=== PATIENT | female | born 1960 | race Caucasian/White ===

== ENCOUNTER 2017-01-28 14:01 | Day surgery (SDC) | payer OTHER ==
[~2017-01-28] VITALS: Ht 157.5 cm; Wt 75.7 kg
[~2017-01-28 14:01] MED LIST: HYDR-906 PO; IBUP400T22 PO; METO10TA92 PO; PANT40TA3 PO
[2017-01-28 14:43] VITALS: Ht 157.5 cm; Wt 75.7 kg
[2017-01-28 15:05] VITALS: BP 123/73; PULSE 62; RESP 18
[2017-01-28] MEDS ORDERED: MEPERIDINE 50 MG INJ ONE (15:30)
[2017-01-28] MEDS ORDERED: MIDAZOLAM 1 MG/ML 2 ML INJ ONE ×2 (15:30)
[2017-01-28] MEDS ORDERED: FENTAnyl 50 MCG/ML VIAL ONE (15:32)
--- NOTE | 2017-01-28 15:39 | OPPN ---
Date/Time of Note Date/Time of Note DATE: 01/28/17 TIME: 15:35 Operative Report Preoperative Diagnosis F/U COLON CA LLQ PAIN Postoperative Diagnosis S/P LEFT COLECTOMY ANASTAMOSIS AT 15 CMS MELANOSIS COLI Operation/Procedure Performed COLONOSCOPY DIAGNOSTIC Provider: NYLA JAIME MD Anesthesia Type: moderate sedation (VERSED 4MG/DEMORAL 50MG ) Estimated blood loss: none Transfusion Required: no Specimen: none Grafts/Implants: none Complications: no NYLA JAIME MD Jan 28, 2017 3:39 pm
[2017-01-28 16:05] VITALS: BP 108/67; PULSE 62; RESP 14
--- NOTE | 2017-01-28 23:20 | GILP ---
DATE OF PROCEDURE: 01/28/2017 PREOPERATIVE DIAGNOSIS: This patient had colon CA resected here in 2016, and since then she had chemotherapy and further oncological therapy. Complaints of left lower quadrant pain thus she underwent colonoscopy. 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 Sutures metallic and silk sutures noted. Deformity at the workup colocolostomy noted. The rest of the colon and rectum are unremarkable. PROCEDURE PERFORMED: Colonoscopy. SURGEON: Raven Garcia MD. DESCRIPTION OF PROCEDURE: The patient was put in the left lateral decubitus. After obtaining informed consent she was given 4 mg of IV Versed and 50 mcg mg of Demerol. Rectal exam was done which is normal. I advanced a Olympus video colonoscope all the way to cecum. Appendiceal opening and ileocecal valve were identified. Pictures of the cecum taken and multiple pictures throughout the colon taken. Melanosis coli noted throughout the colon and no polyps noted. The cecum and ascending colon normal other than melanosis coli. Transverse colon and descending colon normal. Sigmoid colon shortened due to previous left colectomy, and at 15 cm there is an anastomotic site. It is irregular scarring with silk suture and metallic sutures. Photography of this area done. There was no evidence of any recurrent tumor in this area. Rectum also examined by retroflexion and antegrade exam normal. Upon removal of the scope the patient had no complication other than the surgical anastomotic site findings and melanosis coli. This study is negative for any new tumor or polyps. Recommend a close follow up. Oncologist may consider PET-CT. She will see me as an outpatient and may consider rectal ultrasound because of her left lower quadrant and rectal pain. Meanwhile the patient will be followed by all the consultants and Oncologist, I will see the patient as an outpatient in 2 weeks to go over the findings again. A repeat colonoscopy in 1 year. Dictated By: Raven Garcia MD /[email or web address]/[email or web address] /Document#: [id number] CC: Manuel Lafleur MD; Michael Franks MD; Raven Garcia MD; [place] Gue[place], [address] [facility], [place] [address];*EndCC* [facility]
== END 2017-01-28 16:31 | disposition home or self-care (01) ==
LOC: GIL 14:01
PROVIDERS: ATTEND Internal Medicine
DX: Z85.038 Personal history of other malignant neoplasm of large intestine (principal); K63.89 Other specified diseases of intestine
CPT/HCPCS: 45378; J2175; J2250; J3010

== ENCOUNTER 2017-02-07 05:22 | Emergency (ER) | payer OTHER ==
[~2017-02-07] VITALS: Ht 157.5 cm; Wt 75.5 kg
[2017-02-07 05:29] VITALS: Ht 157.5 cm; Wt 75.5 kg
--- NOTE | 2017-02-07 06:25 | ERD ---
ER Documentation Chief Complaint Date/Time DATE: 02/07/17 TIME: 06:21 Chief Complaint Dysuria and pelvic pain HPI Patient is a 57-year-old female with a past medical history of colon cancer presents emergency department for concerns of dysuria and suprapubic pain. Patient states her symptoms have been present for 2 days. Patient reports burning pain with urination. Patient reports frequency and urgency. Patient denies any hematuria. Patient states her pain is localized to suprapubic region. Patient denies any radiation of the pain. Patient reports that he is over her symptoms. Patient denies any fevers, chills, nausea, vomiting, abdominal pain, flank pain or LOC. Patient denies any rectal bleeding or changes in stool. ROS All systems reviewed and are negative except as per history of present illness. Medications Home Meds Reported Medications [None] No Conflict Check 01/28/17 Allergies Allergies: Coded Allergies: morphine (Verified Adverse Reaction, Mild, n/v, 02/07/17) hydrocodone (Verified Adverse Reaction, Unknown, n/v, 01/28/17) tramadol (Verified Adverse Reaction, Unknown, 01/28/17) PMhx/Soc History of Surgery: Yes (PARTIAL COLECTOMY, LASIX, HEMORRHOIDECTOMY, TUBAL) Anesthesia Reaction: No Hx Neurological Disorder: No Hx Respiratory Disorders: No Hx Cardiac Disorders: No Hx Psychiatric Problems: No Hx Miscellaneous Medical Probl: No Hx Alcohol Use: No Hx Substance Use: No Hx Tobacco Use: No Physical Exam Vitals Vital Signs Date Time Temp Pulse Resp B/P Pulse Ox O2 Delivery O2 Flow Rate FiO2 02/07/17 05:29 97.4 69 20 114/72 99 Physical Exam GENERAL: Well-developed, well-nourished female. Appears in no acute distress. HEAD: Normocephalic, atraumatic. EYES: Pupils are equally reactive bilaterally. EOMs grossly intact. No conjunctival erythema. ENT: Moist mucous membranes. No uvula deviation. No kissing tonsils. NECK: Supple. No meningismus. Normal range of motion of the neck. LUNG: Clear to auscultation bilaterally. No rhonchi, wheezing, rales or coarse breath sounds. HEART: Regular rate and rhythm. No murmurs, rubs or gallops. ABDOMEN: Soft, and nondistended. Tender to palpation to suprapubic region. Positive bowel sounds in all four quadrants. No rebound tenderness, no guarding. (-) McBurney's point tenderness. No CVA tenderness. EXTREMITIES: Equal pulses bilaterally. No peripheral clubbing, cyanosis or edema. No unilateral leg swelling. NEUROLOGIC: Alert and oriented. Moving all four extremities without any difficulty. Normal speech. Steady gait. SKIN: Normal color. Warm and dry. No rashes or lesions. Results 24 hrs Laboratory Tests Test 02/07/17 06:33 Bedside Urine pH (LAB) 5.0 Bedside Urine Protein (LAB) 1+ Bedside Urine Glucose (UA) 0.1% Bedside Urine Ketones (LAB) Negative Bedside Urine Blood 3+ Bedside Urine Nitrite (LAB) Positive Bedside Urine Leukocyte Esterase (L 3+ Procedures/MDM MEDICAL DECISION MAKING: This is a 57 year old female who presents with pain with urination x 2 days. Vital signs were reviewed. Patient was afebrile. Urine dip showed +nitrites, 3+ blood. Given these findings, the patients presentation is most consistent with urinary tract infection. I have a much lower clinical concern for pyelonephritis , nephrolithiasis, appendicitis, diverticulitis, constipation, PID, ovarian torsion, or tubo-ovarian abscess. PRESCRIPTIONS: Macrobid DISCHARGE: At this time, patient is stable for discharge and outpatient management. I have instructed the patient to follow-up with his/her primary care physician in 1-2 days. Patient should repeat UA in 2 weeks to check for resolution of urinary tract infection. If symptoms persist, patient may need to see a specialist for further examinations and testing. I have instructed the patient to promptly return to the ER at any time for any new or worsening symptoms including increased pain, fever, nausea, vomiting, urinary changes or weakness. The patient and/or family expressed understanding of and agreement with this plan. All questions were answered. Home care instructions were provided. Departure Diagnosis: Primary Impression: UTI (urinary tract infection) Urinary tract infection type: site unspecified Hematuria presence: without hematuria Qualified Code: N39.0 - Urinary tract infection without hematuria, site unspecified Condition: Stable Patient Instructions: Understanding Urinary Tract Infections (UTIs) Additional Instructions: Call your primary care doctor TOMORROW for an appointment during the next 1-2 days.See the doctor sooner or return here if your condition worsens before your appointment time. ODALYS HUI PA-C Feb 07, 2017 06:25
[2017-02-07 06:26] LABS: URINE BLOOD (Dip) POC 3+ (NEGATIVE)
[2017-02-07] MEDS ORDERED: NITR-58 PO (06:56)
== END 2017-02-07 07:07 | disposition home or self-care (01) ==
LOC: FTE 05:22
DX: N39.0 Urinary tract infection, site not specified (principal); Z85.038 Personal history of other malignant neoplasm of large intestine
CPT/HCPCS: 81003; 99283

== ENCOUNTER 2017-04-22 20:32 | Emergency (ER) | payer OTHER ==
[~2017-04-22] VITALS: Ht 160 cm; Wt 77.2 kg
[~2017-04-22 20:32] MED LIST changes: -HYDR-906 PO; -IBUP400T22 PO; -METO10TA92 PO; +NITR-58 PO; -PANT40TA3 PO
[2017-04-22 20:53] VITALS: Ht 160 cm; Wt 77.2 kg
[2017-04-22] MEDS ORDERED: KETOROLAC 60 MG INJ IM STA (21:53)
--- NOTE | 2017-04-22 22:18 | RADRPT ---
PROCEDURE: X-RAY RIGHT ELBOW CLINICAL INDICATION: Trauma TECHNIQUE: 3 views of the right elbow are available for review COMPARISON: None available FINDINGS: There is a mildly displaced acute fracture of the lateral epicondyle although does not appear to ext end to the radiocapitellar joint. There is minimal dorsal apex angulation. There is no dislocation. There is slight widening of the radiocapitellar joint compared to the ulnohumeral joint. A small jose nt effusion is present. Soft tissues are unremarkable. RPTAT: AA IMPRESSION: Mildly displaced acute fracture of the lateral epicondyle. .Maureen Disla MD, MD Date Time Electronically viewed and signed by .Maureen Disla MD, on 04/22/2017 22:18 .T/
--- NOTE | 2017-04-22 22:30 | ERD ---
ER Documentation Chief Complaint Chief Complaint s/p 1 hr [employer], right elbow swelling noted. pain level 8/10 HPI 57-year-old female presents to emergency department for complaints of right elbow pain and swelling after falling on 8 1 hour prior to arrival. Patient describes the pain as throbbing pain, 8/10 scale, as was upon movement accompanied with swelling. Patient did not take any medications to help with symptoms. Patient denies any deformity. Patient denies any numbness or tingling. ROS All systems reviewed and are negative except as per history of present illness. Medications Home Meds Active Scripts Nitrofurantoin Monohyd Macrocr* (Macrobid*) 100 Mg Capsr, 100 MG PO BID for 5 Days, CAP Prov:ODALYS HUI PA-C 02/07/17 Reported Medications [None] No Conflict Check 01/28/17 Allergies Allergies: Coded Allergies: morphine (Verified Adverse Reaction, Mild, n/v, 02/07/17) hydrocodone (Verified Adverse Reaction, Unknown, n/v, 01/28/17) tramadol (Verified Adverse Reaction, Unknown, 01/28/17) PMhx/Soc History of Surgery: Yes (PARTIAL COLECTOMY, LASIX, HEMORRHOIDECTOMY, TUBAL) Anesthesia Reaction: No Hx Neurological Disorder: No Hx Respiratory Disorders: No Hx Cardiac Disorders: No Hx Psychiatric Problems: No Hx Miscellaneous Medical Probl: No Hx Alcohol Use: No Hx Substance Use: No Hx Tobacco Use: No FmHx Family History: No coronary disease, No diabetes, No other Physical Exam Vitals Vital Signs Date Time Temp Pulse Resp B/P Pulse Ox O2 Delivery O2 Flow Rate FiO2 04/22/17 20:53 99.2 74 22 134/79 98 Physical Exam GENERAL: The patient is well developed and appropriate for usual state of health, in no apparent distress. CHEST: Clear to auscultation bilaterally. There are no rales, wheezes or rhonchi. HEART: Regular rate and rhythm. No murmurs, clicks, rubs or gallops. No S3 or S4. ABDOMEN: Soft, nontender and nondistended. Good bowel sounds. No rebound or guarding. No gross peritonitis. No gross organomegaly or masses. No Burnette sign or McBurney point tenderness. BACK: No midline or flank tenderness. EXTREMITIES: Tenderness on palpation on the right elbow area, swelling, limitation of movement because of the pain. Equal pulses bilaterally. Full range of motion of other joints of the body. Grossly neurovascularly intact. NEURO: Alert and oriented. Cranial nerves 2-12 intact. Motor strength in all 4 extremities with 5/5 strength. Sensation grossly intact. Normal speech and gait. SKIN: There is no apparent rash or petechia. The skin is warm and dry. HEMATOLOGIC AND LYMPHATIC: There is no evidence of excessive bruising or lymphedema. No gross cervical, axillary, or inguinal lymphadenopathy. Results 24 hrs Current Medications Medications (Trade) Dose Ordered Sig/Isabelle Route PRN Reason Start Time Stop Time Status Last Admin Dose Admin Ketorolac Tromethamine (Toradol) 60 mg ONCE STAT IM 04/22/17 21:53 04/22/17 21:55 DC Patient was given medication for pain here in emergency department, after treatment, patient verbalized feeling much better. Patient's pain is improved. PROCEDURE: X-RAY RIGHT ELBOW CLINICAL INDICATION: Trauma TECHNIQUE: 3 views of the right elbow are available for review COMPARISON: None available FINDINGS: There is a mildly displaced acute fracture of the lateral epicondyle although does not appear to extend to the radiocapitellar joint. There is minimal dorsal apex angulation. There is no dislocation. There is slight widening of the radiocapitellar joint compared to the ulnohumeral joint. A small joint effusion is present. Soft tissues are unremarkable. RPTAT: AA IMPRESSION: Mildly displaced acute fracture of the lateral epicondyle. .Maureen Disla MD, MD Date Time Electronically viewed and signed by .Maureen Disla MD, on 04/22/2017 22: 18 .T/ CC: DEDRICK LUNA NP After receiving patients xray report, a long arm splint was applied on the patients right elbow. After application of the splint, patient has intact sensation and circulation on distal area of the affected joint. Patient does not complain of numbness or tingling after application of the splint. Patient tolerated procedure well. Sling was given to use afterwards. Procedures/MDM Medical Decision Making: Patient's pain is most likely consistent with a right elbow fracture is seen in the x-ray. There is no suspicion for neurovascular compromise. Patient has intact sensation and circulation of the affected extremity. There is low suspicion for septic arthritis. Patient does not have any fever. Radiology exams of the affected area does not show any dislocation. Disposition: Home. Patient is given prescription for ibuprofen for pain, Tylenol 3 for severe pain. Patient was advised to elevate the affected area and apply ice on affected area. Patient was advised that if symptoms are worse, numbness, tingling, high fever, unable to move joint, worsening symptoms, to return to emergency department immediately. Otherwise, patient is advised to follow up with the primary care doctor in 5-7 days for reevaluation of symptoms. See orthopedic doctor within 3-5 days. Disclaimer: Inadvertent spelling and grammatical errors are likely due to EHR/ dictation software use and do not reflect on the overall quality of patient care. Also, please note that the electronic time recorded on this note does not necessarily reflect the actual time of the patient encounter. Departure Diagnosis: Primary Impression: Elbow fracture, right Encounter type: initial encounter Fracture type: closed Qualified Code: S42.401A - Closed fracture of right elbow, initial encounter Condition: Stable Patient Instructions: Elbow Fracture Additional Instructions: Patient is given prescription for ibuprofen for pain, Tylenol 3 for severe pain. Patient was advised to elevate the affected area and apply ice on affected area. Patient was advised that if symptoms are worse, numbness, tingling, high fever, unable to move joint, worsening symptoms, to return to emergency department immediately. Otherwise, patient is advised to follow up with the primary care doctor in 5-7 days for reevaluation of symptoms. See orthopedic doctor within 3-5 days. DEDRICK LUNA NP Apr 22, 2017 22:30
[2017-04-22] MEDS ORDERED: ACET1TAB40 PO ×2 (22:32→22:36)
[2017-04-22] MEDS ORDERED: IBUP-1542 PO ×2 (22:32→22:36)
[2017-04-22 23:19] VITALS: BP 127/68; PULSE 81; RESP 16; TEMP 98.3
== END 2017-04-22 23:20 | disposition home or self-care (01) ==
LOC: FTE 20:32
DX: S42.401A Unspecified fracture of lower end of right humerus, initial encounter for closed fracture (principal); W18.39XA Other fall on same level, initial encounter; Y92.9 Unspecified place or not applicable
CPT/HCPCS: 29105; 73080; 96372; 99284; J1885

== ENCOUNTER 2017-11-22 06:39 | Emergency (ER) | END 2017-11-22 09:34 | disposition home or self-care (01) ==